=== PATIENT | male | born 1935 | race Caucasian/White ===

== ENCOUNTER → 2017-08-18 08:26 | Outpatient (CLI) | payer MEDICARE, OTHER, SELFPAY ==
[2017-08-18 09:35] LABS: Add Manual Diff / Slide Review NO; Basophils Percent Auto 1.1 % (0-2); Eosinophils Percent Auto 4.8 % (2-4); Hematocrit 43.4 % (41-53); Hemoglobin 15.1 g/dL (13.5-17.5); Lymphocytes Percent Auto 39.5 % (25-40); Mean Corpuscular HGB Conc 34.7 % (30-36); Mean Corpuscular Hemoglobin 32.8 PG (26-34); Mean Corpuscular Volume 94.6 fL (80-100); Monocytes Percent Auto 8.2 % (3-14); Neutrophils Absolute Auto 2700 /uL (3000-5900); Neutrophils Percent Auto 46.4 % (50-75); Platelet Count 223 X10^3/uL (150-400); Red Blood Cell Count 4.59 X10^6/uL (4.5-5.9); Red Cell Distribution Width 13.2 % (11.6-14.8); White Blood Cell Count 5.7 X10^3/uL (4.5-11.0)
[2017-08-18 09:54] LABS: Alanine Aminotransferase 37 IU/L (21-72); Albumin 4.1 g/dL (3.5-5.0); Albumin Globulin Ratio 1.4 (1.0-2.8); Alkaline Phosphatase 57 U/L (38-126); Aspartate Aminotransferase 33 IU/L (17-59); Bilirubin Total 0.9 mg/dL (0.2-1.3); Blood Urea Nitrogen 16 mg/dL (9-20); Calcium 8.7 mg/dL (8.4-10.2); Carbon Dioxide 25 mmol/L (22-32); Chloride 103 mmol/L (98-107); Cholesterol 136 mg/dL (140-199); Estimated Glomerular Filt Rate > 60.0 mL/min (>60); Globulin 2.9 g/dL (1.7-4.1); Glucose 102 mg/dL (80-110); HDL Cholesterol 36 mg/dL (40-60); HEMOLYSIS 22 (0-50); LDL Cholesterol Calculated 67 mg/dL (<100); Potassium 4.4 mmol/L (3.4-5.1); Sodium 140 mmol/L (137-145); Triglycerides 167 mg/dL (35-150)
[2017-08-18 10:20] LABS: Thyroid Stimulating Hormone 0.86 uIU/mL (0.47-4.68)
== END ==
PROVIDERS: PCP Internal Medicine; Visit Provider Internal Medicine Cardiovascular Disease
DX: E78.5 Hyperlipidemia, unspecified (principal); R53.83 Other fatigue
CPT/HCPCS: 36415; 80053; 80061; 84443; 85025

== ENCOUNTER → 2018-07-11 08:39 | Outpatient (CLI) | payer MEDICARE, OTHER, SELFPAY ==
--- NOTE | 2018-07-11 | DI.RAD.S_ITS ---
PROCEDURE: XR CHEST 2V INDICATIONS: ACUTE BRONCHITIS, UNSPECIFIED ORGANISM TECHNIQUE: 2 views of the chest were acquired. COMPARISON: [facility], CHEST 1 VIEW, 10/08/2014, 17:50. [facility], CHEST 1 VIEW, 07/30/2012, 18:15. FINDINGS: Surgical changes and devices: None. Lungs and pleura: Lungs are clear. No pleural effusions or pneumothorax. Mediastinum: Mediastinal contours are normal. Heart size is normal. Bones and chest wall: No suspicious bony abnormalities. Soft tissues appear unremarkable. IMPRESSION: Pacemaker and leads stable over time, otherwise normal for age, source of current bronchitis symptoms is not seen. Dictated by: Douglas Hayward M.D. on 07/11/2018 at 10:03 Approved by: Douglas Hayward M.D. on 07/11/2018 at 10:04
[2018-07-11 10:05] LABS: Alanine Aminotransferase 51 IU/L (21-72); Aspartate Aminotransferase 38 IU/L (17-59); BUN Creatinine Ratio 10.8 (6-22); Blood Urea Nitrogen 13 mg/dL (9-20); Calcium 9.3 mg/dL (8.4-10.2); Carbon Dioxide 27 mmol/L (22-32); Chloride 102 mmol/L (98-107); Cholesterol 128 mg/dL (140-199); Glucose 98 mg/dL (80-110); HDL Cholesterol 31 mg/dL (40-60); HEMOLYSIS < 15 (0-50); LDL Cholesterol Calculated 61 mg/dL (<100); Potassium 5.2 mmol/L (3.4-5.1); Sodium 139 mmol/L (137-145); Triglycerides 179 mg/dL (35-150)
[2018-07-11 10:25] LABS: Prostate Specific Antigen Scrn 0.505 ng/mL (0.1-4.0)
== END ==
PROVIDERS: PCP Internal Medicine; Visit Provider Internal Medicine
DX: Z12.5 Encounter for screening for malignant neoplasm of prostate (principal); I10 Essential (primary) hypertension; E78.5 Hyperlipidemia, unspecified; J20.9 Acute bronchitis, unspecified
CPT/HCPCS: 36415; 71046; 80048; 80061; 84450; 84460; G0103

== ENCOUNTER 2019-06-05 09:54 | Emergency (ER) | payer MEDICARE, OTHER, SELFPAY ==
--- NOTE | 2019-06-05 09:57 | DI.RAD.S_ITS ---
PROCEDURE: XR CHEST 1V INDICATIONS: Evaluation of placement of pacemaker TECHNIQUE: One view of the chest was acquired. COMPARISON: [facility], CR, XR CHEST 2V, 07/11/2018, 9:29. FINDINGS: Surgical changes and devices: A pacer device is seen. The leads are seen in stable positions. Lungs and pleura: Lungs are clear. No pleural effusions or pneumothorax. Mediastinum: Mediastinal contours appear normal. Heart size is normal. Bones and chest wall: Age-appropriate bony degenerative changes are seen. No suspicious bony lesions. Overlying soft tissues appear unremarkable. IMPRESSION: Unremarkable pacer device, which appears stable from the prior. The leads are seen in stable positions. Dictated by: Pito Vásquez M.D. on 06/05/2019 at 9:19 Approved by: Pito Vásquez M.D. on 06/05/2019 at 9:20
[2019-06-05 09:58] VITALS: BP 168/79; PULSE 64; RESP 22; TEMP 36.3; O2SAT 100
--- NOTE | 2019-06-05 10:07 | ED_ITS ---
HPI - General Adult General Chief complaint: Arrhythmia/Palpitations Stated complaint: Pacemaker failing Time Seen by Provider: 06/05/19 09:56 Source: patient Mode of arrival: Ambulatory Limitations: no limitations History of Present Illness HPI narrative: 83-year-old male. Has a pacemaker in place secondary to AFib. His current pacemaker has been in for the past 9 years. He states that he is scheduled to have it replace the beginning of next week secondary to a low battery. He states that he was at his normal state health when at 0900 hours this morning he started to feel weird sensations in his chest. He states it feels like someone is turning the power up and down on the pacemaker. He states that when the symptoms occur they last for seconds and then completely resolved. No chest pain. Some shortness of breath with the symptoms but none at the time my evaluation. Not on anticoagulation Related Data Home Medications Medication Instructions Recorded Confirmed ASPIRIN (Aspir-Low) 81 mg PO QDAY #0 02/24/11 03/18/18 atenolol 25 mg PO HS #0 02/24/11 03/18/18 atorvastatin [Lipitor] 40 mg PO QDAY #0 07/30/12 03/18/18 zolpidem 5 mg PO HSP #0 07/30/12 03/18/18 Allergies Allergy/AdvReac Type Severity Reaction Status Date / Time Sulfa (Sulfonamide Allergy Mild HIVES Verified 03/18/18 14:25 Antibiotics) [SULFA (SULFONAMIDE ANTIBIOTICS)] Review of Systems Constitutional Constitutional: Denies fever(s) Cardiovascular Cardiovascular: Denies chest pain and Reports dyspnea Respiratory Respiratory: Reports dyspnea Gastrointestinal Gastrointestinal: Denies abdominal pain, Denies nausea and Denies vomiting Musculoskeletal Musculoskeletal: Denies myalgias and Denies arthralgias Integumentary/Breasts Skin/Breast: Denies rash Neurologic Neurologic: Denies behavioral changes Psychiatric Psychiatric: Denies behavioral changes Hematologic/Lymphatic Hematologic/Lymphatic: Denies easy bleeding and Denies easy bruising Patient History Medical History Atrial fibrillation (Acute) Pacemaker (Acute) Social History Smoking Status: Former smoker Smoking Status: Former smoker Exam Initial Vital Signs Initial Vital Signs: Vital Signs Temperature 97.3 F L 06/05/19 09:58 Pulse Rate 64 06/05/19 09:58 Respiratory Rate 22 06/05/19 09:58 Blood Pressure 168/79 H 06/05/19 09:58 Pulse Oximetry 100 06/05/19 09:58 Const General: cooperative, comfortable and well developed Limitations: mental status not altered HENMO Head: normal to inspection and normocephalic Resp Effort & Inspection: normal respiratory effort Auscultation: clear to auscultation bilaterally Cardio Rate: regular rate Rhythm: regular rhythm GI Inspection: non-distended Palpation: soft Skin Lesions: no lesions Rashes: no rashes Neuro General: alert, awake and oriented x3 Cognition: normal cognition Speech: speech normal Extrem General: normal to inspection and capillary refill normal Psych Appearance: grossly normal and well kempt Scores GCS Rosalina coma scale eye opening: Spontaneous Hondo coma scale verbal response: Orientated Rosalina coma scale motor response: Obey commands Rosalina coma scale total score: 15 Course Orders Ordered: ED Orders 06/05/19 09:57 XR chest 1V Stat EKG-12 Lead Stat 06/05/19 10:10 Complete Blood Count AUTO DIFF Stat Comprehensive Metabolic Panel Stat Lipase Stat NT-proBNP (BNP-Adult 18+) Stat Partial Thromboplastin Time Stat Prothrombin Time INR Stat Vital Signs Vital signs: Vital Signs - 8 hr 06/05/19 09:58 06/05/19 11:02 Temperature 97.3 F L Pulse Rate 64 64 Respiratory Rate 22 18 Blood Pressure 168/79 H 123/71 Pulse Oximetry 100 95 Medical Decision Making Lab Data Lab results reviewed: Yes I reviewed the patient's lab results. Result diagrams: 06/05/19 10:10 06/05/19 10:10 Labs: Lab Results 06/05/19 06/05/19 06/05/19 Range/Units 10:10 10:10 10:10 WBC 6.6 (4.5-11.0) X10^3/uL RBC 4.55 (4.5-5.9) X10^6/uL Hgb 15.0 (13.5-17.5) g/dL Hct 43.7 (41-53) % MCV 96.1 (80-100) fL MCH 32.9 (26-34) PG MCHC 34.2 (30-36) % RDW 12.9 (11.6-14.8) % Plt Count 238 (150-400) X10^3/uL Neut % (Auto) 48.4 L (50-75) % Lymph % (Auto) 43.8 H (25-40) % Armstrong % (Auto) 4.5 (3-14) % Eos % (Auto) 2.5 (2-4) % Baso % (Auto) 0.8 (0-2) % Neut # (Auto) 3200 (7043-5045) /uL Lymph # (Auto) 2900 (5723-6700) /uL Armstrong # (Auto) 300 (0-900) /uL Eos # (Auto) 200 (0-450) /uL Baso # (Auto) 100 (0-100) /uL PT 11.4 (10.1-12.7) SECONDS INR 1.0 (0.9-1.3) APTT 34 (26.4-36.2) SECONDS Sodium 137 (137-145) mmol/L Potassium 4.2 (3.4-5.1) mmol/L Chloride 107 (98-107) mmol/L Carbon Dioxide 22 (22-32) mmol/L BUN 20 (9-20) mg/dL Creatinine 1.05 (0.66-1.25) mg/dL Estimated GFR > 60.0 (>60) mL/min BUN/Creatinine Ratio 19.0 (6-22) Glucose 179 H (80-110) mg/dL Calcium 8.9 (8.4-10.2) mg/dL Total Bilirubin 0.7 (0.2-1.3) mg/dL AST 46 (17-59) IU/L ALT 42 (<50) IU/L Alkaline Phosphatase 52 (38-126) U/L NT-Pro-B Natriuret Pep (<450) pg/mL Total Protein 6.9 (6.3-8.2) g/dL Albumin 4.2 (3.5-5.0) g/dL Globulin 2.7 (1.7-4.1) g/dL Albumin/Globulin Ratio 1.6 (1.0-2.8) Lipase 102 (23-300) U/L 03/18/20 Range/Units 10:10 WBC (4.5-11.0) X10^3/uL RBC (4.5-5.9) X10^6/uL Hgb (13.5-17.5) g/dL Hct (41-53) % MCV (80-100) fL MCH (26-34) PG MCHC (30-36) % RDW (11.6-14.8) % Plt Count (150-400) X10^3/uL Neut % (Auto) (50-75) % Lymph % (Auto) (25-40) % Armstrong % (Auto) (3-14) % Eos % (Auto) (2-4) % Baso % (Auto) (0-2) % Neut # (Auto) (6423-8994) /uL Lymph # (Auto) (6068-8703) /uL Armstrong # (Auto) (0-900) /uL Eos # (Auto) (0-450) /uL Baso # (Auto) (0-100) /uL PT (10.1-12.7) SECONDS INR (0.9-1.3) APTT (26.4-36.2) SECONDS Sodium (137-145) mmol/L Potassium (3.4-5.1) mmol/L Chloride (98-107) mmol/L Carbon Dioxide (22-32) mmol/L BUN (9-20) mg/dL Creatinine (0.66-1.25) mg/dL Estimated GFR (>60) mL/min BUN/Creatinine Ratio (6-22) Glucose (80-110) mg/dL Calcium (8.4-10.2) mg/dL Total Bilirubin (0.2-1.3) mg/dL AST (17-59) IU/L ALT (<50) IU/L Alkaline Phosphatase (38-126) U/L NT-Pro-B Natriuret Pep 77 (<450) pg/mL Total Protein (6.3-8.2) g/dL Albumin (3.5-5.0) g/dL Globulin (1.7-4.1) g/dL Albumin/Globulin Ratio (1.0-2.8) Lipase (23-300) U/L Imaging Data Chest x-ray: Radiologist's Impression: [address] [address] XRay Report Signed Patient: Lamberto Serrato [facility]#: [id number] : 6Acct:[id number] Age/Sex: 83 / MDate of Service: 06/05/19 Loc: ED Accession Number: [id number] Procedure: XR chest 1V Ordering Provider: Jens Aguayo D.O. PROCEDURE: XR CHEST 1V INDICATIONS: Evaluation of placement of pacemaker TECHNIQUE: One view of the chest was acquired. COMPARISON: [facility], CR, XR CHEST 2V, 07/11/2018, 9:29. FINDINGS: Surgical changes and devices: A pacer device is seen. The leads are seen in stable positions. Lungs and pleura: Lungs are clear. No pleural effusions or pneumothorax. Mediastinum: Mediastinal contours appear normal. Heart size is normal. Bones and chest wall: Age-appropriate bony degenerative changes are seen. No suspicious bony lesions. Overlying soft tissues appear unremarkable. IMPRESSION: Unremarkable pacer device, which appears stable from the prior. The leads are seen in stable positions. Dictated by: Pito Vásquez M.D. on 06/05/2019 at 9:19 Approved by: Pito Vásquez M.D. on 06/05/2019 at 9:20 ECG Data Attestation: I personally reviewed and interpreted this ECG as follows: Prior ECG tracings: not available for review Interpretation: Ventricularly paced Rate is 65 MDM Narrative Medical decision making narrative: Patient is stable. Is ventricularly paced at a rate is 65. Has a [employer] pacemaker. According to [employer] and Dr aguirre with cardiology his pacemaker does revert to a single-chamber with a rate is 65 when it reaches its better in life. He is scheduled next week for a procedure to have this replaced. Patient did have symptoms while being here in the emergency department without any changes on his monitoring. He was ventricularly paced at a rate is 65. Electrolytes are unremarkable. Will have the patient follow up on Monday as already scheduled. He was given strict return precautions. He expressed understanding and agreement. Discharge Plan Departure Patient Disposition: Home Clinical Impression: Palpitations Discharge Date/Time: 06/05/19 11:05 Activity Restrictions/Additional Instructions: Your pacemaker does seem to be working appropriately for the stage in its battery life. I do recommend that you keep your appointment at the beginning of next week to have the battery changed. Please return to the emergency department for any new symptoms to include headaches, chest pain, palpitations, lightheadedness, or any other new or worsening symptoms Prescriptions: No Action atenolol 25 MG tablet 25 mg PO HS Qty: 0 RF: 0 ASPIRIN (Aspir-Low) 81 mg PO QDAY Qty: 0 RF: 0 atorvastatin [Lipitor] 40 MG tablet 40 mg PO QDAY Qty: 0 RF: 0 zolpidem 5 MG tablet 5 mg PO HSP Qty: 0 RF: 0 Referrals: Evelyn Hallman MD [Primary Care Provider] -
--- NOTE | 2019-06-05 10:16 | PC.NURSE ---
Pt arrived to ED with . C/o feeling fluttering in his chest. Has pacemaker x9 yrs which he has an appt next week to have battery changed. States it feels like it does when they are changing the voltage Denies CP, dizziness, or SOB at this time. attached to cardiac monitoring. Appears to be 100% VPaced. Lungs clear. states h/o 1 cardiac stent. takes ASA 81mg daily. IV placed and labs drawn. awaiting MD assessment.
[2019-06-05 10:18] LABS: Add Manual Diff / Slide Review NO; Basophils Absolute Auto 100 /uL (0-100); Basophils Percent Auto 0.8 % (0-2); Eosinophils Absolute Auto 200 /uL (0-450); Eosinophils Percent Auto 2.5 % (2-4); Hematocrit 43.7 % (41-53); Lymphocytes Absolute Auto 2900 /uL (1100-4500); Lymphocytes Percent Auto 43.8 % (25-40); Mean Corpuscular HGB Conc 34.2 % (30-36); Mean Corpuscular Hemoglobin 32.9 PG (26-34); Mean Corpuscular Volume 96.1 fL (80-100); Monocytes Absolute Auto 300 /uL (0-900); Monocytes Percent Auto 4.5 % (3-14); Neutrophils Absolute Auto 3200 /uL (1500-7000); Neutrophils Percent Auto 48.4 % (50-75); Platelet Count 238 X10^3/uL (150-400); Red Blood Cell Count 4.55 X10^6/uL (4.5-5.9); Red Cell Distribution Width 12.9 % (11.6-14.8); White Blood Cell Count 6.6 X10^3/uL (4.5-11.0)
[2019-06-05 10:24] LABS: Prothrombin Time 11.4 SECONDS (10.1-12.7)
[2019-06-05 10:26] LABS: PTT Partial Thromboplastin Tim 34 SECONDS (26.4-36.2)
--- NOTE | 2019-06-05 10:30 | PC.NURSE ---
call placed to [employer]. aware we do not have [employer] Pacer interrogator
[2019-06-05 10:32] LABS: Alanine Aminotransferase 42 IU/L (<50); Albumin 4.2 g/dL (3.5-5.0); Albumin Globulin Ratio 1.6 (1.0-2.8); Alkaline Phosphatase 52 U/L (38-126); Aspartate Aminotransferase 46 IU/L (17-59); Bilirubin Total 0.7 mg/dL (0.2-1.3); Blood Urea Nitrogen 20 mg/dL (9-20); Calcium 8.9 mg/dL (8.4-10.2); Carbon Dioxide 22 mmol/L (22-32); Chloride 107 mmol/L (98-107); Estimated Glomerular Filt Rate > 60.0 mL/min (>60); Globulin 2.7 g/dL (1.7-4.1); Glucose 179 mg/dL (80-110); HEMOLYSIS 25 (0-50); Lipase 102 U/L (23-300); Potassium 4.2 mmol/L (3.4-5.1); Sodium 137 mmol/L (137-145); Total Protein 6.9 g/dL (6.3-8.2)
[2019-06-05 10:42] LABS: NT-proBNP (BNP-Adult 18+) 77 pg/mL (<450)
[2019-06-05 11:02] VITALS: BP 123/71; PULSE 64; RESP 18; O2SAT 95
== END 2019-06-05 11:05 | disposition home or self-care (01) ==
PROVIDERS: Emergency Provider Emergency Medicine; PCP Internal Medicine
DX: R00.2 Palpitations (principal); I48.91 Unspecified atrial fibrillation; Z95.0 Presence of cardiac pacemaker
CPT/HCPCS: 36415; 71045; 80053; 83690; 83880; 85025; 85610; 85730; 93005; 99284

== ENCOUNTER → 2019-07-23 11:58 | Outpatient (CLI) | payer MEDICARE, OTHER, SELFPAY ==
[2019-07-23 14:42] LABS: Alanine Aminotransferase 39 IU/L (<50); Aspartate Aminotransferase 38 IU/L (17-59); Cholesterol 135 mg/dL (140-199); HDL Cholesterol 34 mg/dL (40-60); LDL Cholesterol Calculated 59 mg/dL (<100); Triglycerides 208 mg/dL (35-150)
== END ==
PROVIDERS: PCP Internal Medicine; Referring Provider Internal Medicine; Visit Provider Internal Medicine
DX: E78.5 Hyperlipidemia, unspecified (principal)
CPT/HCPCS: 36415; 80061; 84450; 84460

== ENCOUNTER → 2019-07-26 11:48 | Outpatient (CLI) | payer MEDICARE, OTHER, SELFPAY ==
--- NOTE | 2019-07-26 | DI.RAD.S_ITS ---
PROCEDURE: XR WRIST LT MIN 3V INDICATIONS: Left Wrist Pain After Fall TECHNIQUE: 3 views of the wrist were acquired. COMPARISON: None. FINDINGS: Bones: No fractures or dislocations. No suspicious bony lesions. Degenerative changes are present at the radiocarpal joint and the first CMC joint. Scaphoid view: The scaphoid is intact. Soft tissues: No suspicious soft tissue calcifications. IMPRESSION: No acute radiographic findings. If there is continued pain, followup exam or additional imaging such as MRI or CT could be performed for further assessment. Dictated by: Yadi Mello M.D. on 07/26/2019 at 16:13 Approved by: Yadi Mello M.D. on 07/26/2019 at 16:13
== END ==
PROVIDERS: PCP Internal Medicine; Referring Provider Internal Medicine; Visit Provider Internal Medicine
DX: M25.532 Pain in left wrist (principal)
CPT/HCPCS: 73110

== ENCOUNTER → 2019-08-07 13:03 | Outpatient (CLI) | payer MEDICARE, OTHER, SELFPAY ==
--- NOTE | 2019-08-07 | DI.CT.S_ITS ---
PROCEDURE: CT UE LT WO CON INDICATIONS: Pain in left wrist after fall TECHNIQUE: Noncontrast 1 mm axial sections acquired through the carpal bones, with coronal and sagittal reformats. COMPARISON: [facility], CR, XR WRIST LT MIN 3V, 07/26/2019, 11:49. FINDINGS: Image quality: Excellent. Bones: No fracture or traumatic subluxation is found. 2 small accessory ossicles are seen along the dorsal margin of the radiocarpal articulation, also present on prior plain film imaging. These do not appear to represent avulsion fragments. 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 If unusual symptomatology persists followup by wrist MRI with MR arthrography may become necessary. Dictated by: Douglas Hayward M.D. on 08/07/2019 at 13:58 Approved by: Douglas Hayward M.D. on 08/07/2019 at 14:01
== END ==
PROVIDERS: PCP Internal Medicine; Referring Provider Internal Medicine; Visit Provider Internal Medicine
DX: M25.532 Pain in left wrist (principal); M19.042 Primary osteoarthritis, left hand
CPT/HCPCS: 73200

== ENCOUNTER → 2019-11-06 08:34 | Outpatient (CLI) | payer MEDICARE, OTHER, SELFPAY ==
[2019-11-06 10:13] LABS: Cholesterol 126 mg/dL (140-199); HDL Cholesterol 34 mg/dL (40-60); LDL Cholesterol Calculated 55 mg/dL (<100); Triglycerides 184 mg/dL (35-150)
[2019-11-06 11:05] LABS: Thyroid Stimulating Hormone 1.21 uIU/mL (0.47-4.68)
== END ==
PROVIDERS: PCP Internal Medicine; Referring Provider Internal Medicine Cardiovascular Disease; Visit Provider Internal Medicine Cardiovascular Disease
DX: E78.5 Hyperlipidemia, unspecified (principal)
CPT/HCPCS: 36415; 80061; 84443

== ENCOUNTER → 2019-11-20 10:24 | Outpatient (CLI) | payer MEDICARE, OTHER, SELFPAY ==
--- NOTE | 2019-11-20 11:45 | PM.TREADMILL ---
Cardiac Stress Test Report Referral & Results Date Patient Seen: 11/20/19 Time Patient Seen: 11:45 Requesting provider: Dami Billy Indication: CAD Rest ECG: V paced rhythm Procedure Note: After Lexiscan injection had minimal dyspnea, GI upset and flushing; no chest discomfort. No significant ST changes on ECG after Lexiscan injection, no ectopy. No reversal agents needed Impression: Equivocal lexiscan stress test Please note: Actual ECG tracings can be found in the PACS system.
--- NOTE | 2019-11-21 17:28 | DI.NM.S_ITS ---
DATE OF SERVICE: 11/20/2019 PROCEDURE: Pharmacological perfusion study. INDICATIONS: Shortness of breath, known coronary artery disease with history of LAD stent placement and PTCA of inferior diagonal branch in May, with underlying hypertension and hyperlipidemia. RADIOPHARMACEUTICAL: 26.8 millicurie technetium-99m Myoview IV was injected at stress and 26.3 millicurie technetium-99m Myoview IV was injected at rest. CARDIAC STRESS: The patient underwent IV Lexiscan perfusion study, as per standard protocol, under the supervision of an attending staff. The patient remained hemodynamically stable. Had minimal dyspnea and flushing, as well as upset stomach during Lexiscan. Baseline EKG revealed A-sensed and ventricular paced rhythm. During stress, no convincing new ischemic changes. No significant new sustained arrhythmias. RAW DATA: There is increased subdiaphragmatic activity. The patient's weight is 265 pounds. GATED STUDY: Stress LV ejection fraction 71 percent and resting LV ejection fraction 70 percent. Resting end-diastolic volume 129 mL. TID ratio 1.0, which is within normal limits. Lung/heart ratio 0.50 which is abnormal. MYOCARDIAL PERFUSION: Stress supine and resting supine images were compared to each other. There are no prone images. The patient has predominantly fixed, moderate size, moderate to severely decreased perfusion of mid to distal inferior wall and distal inferoseptum without any significant reversible ischemia. CONCLUSION: The patient has predominantly fixed, moderate size, moderate to severely decreased perfusion of mid to distal inferior wall and distal inferoseptum. It was seen on previous perfusion study, as well. In April,, the patient had reversible ischemia of anterior and anterolateral wall, which was not seen on this study. There are no prone images. Hence, it is difficult to distinguish diaphragmatic tissue attenuation artifact versus old inferior wall myocardial infarction. However, the patient's weight is 265 pounds. Inferior wall is moving well. Hence, likely this fixed inferior wall defect due to diaphragmatic tissue attenuation artifact. Lung/heart ratio is abnormal. Consider 2D echo to make sure there is no diastolic dysfunction or left-sided valvular pathology. Lamberto Serrato - Myra doc#: [id number]/job#: [id number] dd: 11/21/2019 12:51:00 dt: 11/21/2019 17:19:00 DICTATING MD/COPIES TO: Dami Billy MD COPIES MNE: ALTON;
== END ==
PROVIDERS: PCP Internal Medicine; Referring Provider Internal Medicine; Visit Provider Internal Medicine Cardiovascular Disease
DX: R53.83 Other fatigue (principal); R06.02 Shortness of breath; I25.10 Atherosclerotic heart disease of native coronary artery without angina pectoris; I10 Essential (primary) hypertension; E78.5 Hyperlipidemia, unspecified; Z95.5 Presence of coronary angioplasty implant and graft
CPT/HCPCS: 78452; 93017; A9502; J2785

== ENCOUNTER → 2019-12-03 07:45 | Outpatient (CLI) | payer MEDICARE, OTHER, SELFPAY ==
--- NOTE | 2019-12-03 08:32 | DI.ECHO.S_ITS ---
Echocardiogram Report + + :Name: NEW SONG Study Date: 12/03/2019 Height: 70 in : :[facility] Weight: 246 lb : : Gender: Male BSA: 2.3 m2 : :: 1935 Age: 84 yrs BP: 148/96 mmHg: :Reason For Study: FATIGUE : :Ordering Physician: KATHE, : :PARKER Performed By: Nu Jean : :Referring: PARKER ARCHULETA : + + Interpretation Summary The left ventricle is normal in size. The ejection fraction is estimated to be 55-60%. There has been no significant change in LV EF since the previous exam. The right ventricle is grossly normal size. The right ventricular systolic function is normal. There is a pacemaker lead in the right ventricle. The aortic valve is moderately calcified. There is mildly reduced leaflet mobility. There is no hemodynamically significant valvular aortic stenosis. Procedure: A two-dimensional transthoracic echocardiogram with color flow and Doppler was performed. The study quality was technically adequate. A contrast injection of Definity was performed to improve assessment of LV function. Comparison is made with the echocardiogram of 11/17/2016. The patient has a paced rhythm. Left Ventricle: The left ventricle is normal in size. Proximal septal thickening is noted. There is no echo evidence for significant left ventricular outflow tract obstruction. There is no thrombus. The ejection fraction is estimated to be 55-60%. There has been no significant change since the previous exam. There is a mild dyssynchronous contraction pattern due to the paced rhythm. Distal inferior and the distal inferoseptum wall motion abnormalities may reflect pacemaker activation. Compared to the prior exam, the left ventricular wall motion has not changed. Diastolic parameters suggest a relaxation abnormality of the left ventricle, consistent with probable normal filling pressures. Right Ventricle: There is a pacemaker lead in the right ventricle. The right ventricle is grossly normal size. The right ventricular systolic function is normal. Atria: Both atria are normal in size. There is a catheter/pacemaker lead seen in the right atrium. There is no Doppler evidence for an interatrial shunt. Mitral Valve: There is mild mitral annular calcification. There is trace mitral regurgitation. Aortic Valve: The aortic valve is trileaflet. The aortic valve is moderately calcified. There is mild aortic valve sclerosis. There is mildly reduced leaflet mobility. There is no hemodynamically significant valvular aortic stenosis. There is trace aortic regurgitation. Tricuspid Valve: The tricuspid valve is normal. There is trace tricuspid regurgitation. Pulmonic Valve: The pulmonic valve leaflets are thin and pliable; valve motion is normal. There is trace pulmonic regurgitation. Great Vessels: The aortic root is borderline dilated. The ascending aorta is mildly enlarged. There has been no significant change since the previous study. The IVC is of normal diameter and collapses greater than 50% with a sniff. This suggests a low right atrial pressure of 3 mm Hg. Pericardium/ Pleura There is no pericardial effusion. There is an anterior echo-free space consistent with a fat pad. There is no pleural effusion. MMode/2D Measurements & Calculations LVIDd: 5.2 cm LVOT diam: 2.2 cm LVIDs: 3.5 cm Ao root diam: 3.9 cm FS: 33.1 % asc Aorta Diam: 3.7 cm EPSS: 0.78 cm IVSd: 1.4 cm LVPWd: 1.0 cm LV loja. diameter/BSA (cm/m^2): 2.3 LV sys. diameter/BSA (cm/m^2): 1.5 LA A2 area: 25.9 cm2 RA long axis: 4.8 cm LA A4 area: 18.2 cm2 RA area: 16.6 cm2 LA length (vol): 5.9 cm RA vol: 48.2 ml LA vol: 67.4 ml RA : 21.2 ml/m2 LA vol index: 29.6 ml/m2 IVC diam: 1.6 cm RVD1 (basal): 3.9 cm TAPSE: 2.1 cm Doppler Measurements & Calculations Ao V2 max: 192.8 cm/sec LVOT Max Rick: 83.7 cm/sec Ao V2 mean: 131.5 cm/sec LV V1 max P.8 mmHg Ao max P.9 mmHg LV V1 VTI: 18.2 cm Ao mean P.9 mmHg DOUG(I,D): 1.7 cm2 Ao V2 VTI: 40.7 cm DOUG(V,D): 1.6 cm2 sev ratio: 0.45 DOUG indexed to BSA (cm^2/m^2): 0.74 MV E max rick: 51.5 cm/sec PA pr(Accel): 55.0 mmHg MV A max rick: 91.9 cm/sec MV E/A: 0.56 Med Peak E' Rick: 6.4 cm/sec E/E' med: 8.1 Lat Peak E' Rick: 6.0 cm/sec E/E' lat: 8.6 E/e' average: 8.3 MV dec time: 0.28 sec SVLVOT): 68.2 ml Reading Physician:02:10 PM
== END ==
PROVIDERS: PCP Internal Medicine; Referring Provider Internal Medicine; Visit Provider Internal Medicine Cardiovascular Disease
DX: I35.8 Other nonrheumatic aortic valve disorders (principal); I77.89 Other specified disorders of arteries and arterioles; I25.10 Atherosclerotic heart disease of native coronary artery without angina pectoris; R53.83 Other fatigue
CPT/HCPCS: C8929; Q9957

== ENCOUNTER → 2020-05-28 11:43 | Outpatient (CLI) | payer MEDICARE, OTHER, SELFPAY ==
[2020-05-28] MEDS: COVID-19 VACC, Ad26(JANSSEN)/PF 0.5 ML IM (11:57)
== END ==
PROVIDERS: PCP Internal Medicine; Visit Provider Internal Medicine
DX: Z23 Encounter for immunization (principal)
CPT/HCPCS: 0031A; 91303

== ENCOUNTER → 2022-03-14 10:46 | Outpatient (CLI) | payer MEDICARE, OTHER, SELFPAY ==
--- NOTE | 2022-03-14 10:50 | DI.RAD.S_ITS ---
PROCEDURE: XR HAND LT MIN 3V INDICATIONS: Left thumb decreased range of motion TECHNIQUE: 3 views of the hand(s) acquired. COMPARISON: [facility], CR, XR WRIST LT MIN 3V, 07/26/2019, 11:49. FINDINGS: Bones: No fractures or dislocations. Moderate degenerative change. This is demonstrable by large osteophytes and mild joint space narrowing. Carpal bones are normally aligned. No suspicious bony lesions. Soft tissues: No suspicious soft tissue calcifications. IMPRESSION: Moderate degenerative change. No fracture demonstrated. Dictated by: oJrje Rodriguez M.D. on 03/14/2022 at 11:53 Approved by: Jorje Rodriguez M.D. on 03/14/2022 at 11:56
== END ==
PROVIDERS: PCP Internal Medicine; Referring Provider Nurse Practitioner Family; Visit Provider Nurse Practitioner Family
DX: M25.642 Stiffness of left hand, not elsewhere classified (principal)
CPT/HCPCS: 73130

== ENCOUNTER 2022-05-04 14:22 | Emergency (ER) | payer MEDICARE, OTHER, SELFPAY ==
[2022-05-04 14:26] VITALS: BP 145/72; PULSE 67; RESP 20; TEMP 36.4; O2SAT 96; BMI 37.6
[2022-05-04] MEDS: TET,DIPH,PERTUSS(ACELL),VAC/PF 0.5 ML SYRINGE IM (14:48)
[2022-05-04 19:12] VITALS: BP 171/86; PULSE 65; O2SAT 96
[2022-05-04 19:30] VITALS: PULSE 60; O2SAT 96
[2022-05-04 19:31] VITALS: BP 170/79; PULSE 60; O2SAT 96
[2022-05-04 20:00] VITALS: BP 161/76; PULSE 61; O2SAT 96
--- NOTE | 2022-05-04 20:38 | ED_ITS ---
HPI - Wound/Laceration General Chief Complaint: Wound/Laceration Stated Complaint: lac on ring finger rt hand Time Seen by Provider: 05/04/22 19:16 Source: patient and family Mode of arrival: Family Vehicle History of Present Illness HPI narrative: 86-year-old male former smoker with history of hypertension hyperlipidemia presents for evaluation an accidental laceration to the ring finger of his right hand. He states that he was using a mandoline and accidentally cut the tip of his finger. It bled for a bit and he put a coagulating powder on the tip of his finger prior to coming here. He had bleeding but that has since slowed. He denies any numbness, tingling or weakness. He is otherwise well and free of complaint Related Data Home Medications Medication Instructions Recorded Confirmed ASPIRIN (Aspir-Low) 81 mg PO QDAY ##0 02/24/11 03/18/18 atenolol 25 mg tablet 25 mg PO HS ##0 02/24/11 03/18/18 atorvastatin 40 mg tablet (Lipitor) 40 mg PO QDAY ##0 07/30/12 03/18/18 zolpidem 5 mg tablet 5 mg PO HSP ##0 07/30/12 03/18/18 Previous Rx's Medication Instructions Recorded prednisone 20 mg tablet 40 mg PO DAILY #8 tabs 03/04/22 Allergies Allergy/AdvReac Type Severity Reaction Status Date / Time Sulfa (Sulfonamide Allergy Mild HIVES Verified 05/04/22 14:34 Antibiotics) [SULFA (SULFONAMIDE ANTIBIOTICS)] Review of Systems Review of Systems Narrative: GENERAL: Denies chills, fatigue, malaise, fever, sweats. HEENT: Denies sinus pain, ear pain, sore throat, difficulty swallowing, dizziness. RESPIRATORY: Denies dyspnea, cough, wheezing, hemoptysis, sputum. CARDIOVASCULAR: Denies chest pain, palpitations, orthopnea, edema, GASTROINTESTINAL: Denies nausea, vomiting, abdominal pain, diarrhea, constipation, melena. : Denies dysuria, frequency, incontinence, hematuria, urinary retention. MUSCULOSKELETAL: denies weakness, joint pain, or bony pain SKIN: See HPI NEUROLOGIC: Denies weakness, headache, numbness, change in speech, confusion, seizures, incoordination. PSYCHIATRIC: No concerning psychosocial issues. 12 point review of systems is negative except for those stated above Patient History Medical History Atrial fibrillation Pacemaker Social History Smoking Status: Former smoker Smoking Status: Former smoker tobacco type: cigarettes alcohol intake frequency: 0-2 drinks per day Substance Use Type: does not use Exam Narrative Exam Narrative: GEN: AOx3 and in mild distress EYES: Pupils are equal, round, and reactive to light and accommodation. Extraoccular muscles are intact bilaterally. There is no subconjunctival hemorrhage or exudate. CHEST: Lungs are clear to auscultation bilaterally and free of wheezes, rales, or rhonchi. Heart rate is regular rhythm, there are no murmurs, clicks, rubs, or gallops. There is no chest wall tenderness. ABD: Abdomen is soft and nontender. There is no guarding or rebound. Bowel sounds are normal in all 4 quadrants. There is no mass or organomegaly. EXT: Small avulsion of tip of right 5th finger, no active bleeding, no foreign body, no bone exposure, no nail or nail bed involvement. Full, painless range of motion Full painless ROM of all extremities with no loss of sensation or strength. SKIN: Warm, pink, and dry. No erythema or rash Initial Vital Signs Initial Vital Signs: Vital Signs Temperature 97.5 F L 05/04/22 14:26 Pulse Rate 67 05/04/22 14:26 Respiratory Rate 20 05/04/22 14:26 Blood Pressure 145/72 H 05/04/22 14:26 Pulse Oximetry 96 05/04/22 14:26 Oxygen Delivery Method 05/04/22 14:26 Course Orders Ordered: Discontinued Medications Diphtheria/Tetanus/Acell Pertussis (Tet,Diph,Pertuss(Acell),Vac/Pf 0.5 Ml Syringe) 0.5 ml IM .ONCE ONE Stop: 05/04/22 14:35 Last Admin: 05/04/22 14:48 Dose: 0.5 ml Documented By: TATIANA Vital Signs Vital signs: Vital Signs - 8 hr 05/04/22 20:00 05/04/22 20:00 Pulse Rate 61 Blood Pressure 161/76 H Pulse Oximetry 96 MDM - Wound/Laceration MDM Narrative Medical decision making narrative: [86-year-old male with avulsion laceration to tip of right 4th finger] Multiple etiologies for patient's symptoms considered including, but not limited to: [Laceration, avulsion, nail bed injury versus other] Prior Charts reviewed: Prior ED notes evaluated Avulsion laceration without active bleeding, clean, hemostatic gauze placed, no indication for sutures, no need for antibiotics at this time. Otherwise closed, isolated and neurovascularly intact Patient's symptoms improved over duration of stay with above-stated therapies. Findings and discharge diagnosis discussed with patient/family followed by verbalization of understanding Return precautions discussed with patient/family whom verbalize understanding of diagnosis and plan Discharge Plan Departure Patient Disposition: Home Clinical Impression: Avulsion of skin Instructions: DI for Laceration Repair Activity Restrictions/Additional Instructions: *You have been diagnosed with [right hand 4th finger avulsion laceration] *What to do: *Please continue to take your regular medications as directed. [ ] New medication prescriptions sent to your pharmacy: [ ] [ ] New medication written as a paper prescription [ ] No new medications given *Please follow up with your primary care provider in 2-3 days, call for an appointment. Let them know you were seen in the Emergency Department and that we ask that you be seen in follow up. We will electronically transmit a record of today's note if your PCP is in our system *If you do not have a primary care provider please contact the [facility] Resource line at [phone]. They will ask some questions about your medical history and help get you set up with a doctor in the community. *Return to Emergency Department if you should have any new, worsening or concerning symptoms, such as [fever greater than 101 F, shaking chills, worsening pain, persistent vomiting or other bothersome symptoms] Prescriptions: No Action prednisone 20 mg tablet 40 mg PO DAILY Qty: 8 0RF atenolol 25 MG tablet 25 mg PO HS Qty: 0 ASPIRIN (Aspir-Low) 81 mg PO QDAY Qty: 0 atorvastatin [Lipitor] 40 MG tablet 40 mg PO QDAY Qty: 0 zolpidem 5 MG tablet 5 mg PO HSP Qty: 0 Referrals: Evelyn Hallman MD [Primary Care Provider] - Stand Alone Forms: Patient Portal/API
== END 2022-05-04 20:59 | disposition home or self-care (01) ==
PROVIDERS: Emergency Provider Emergency Medicine; PCP Internal Medicine
DX: S61.214A Laceration without foreign body of right ring finger without damage to nail, initial encounter (principal); W26.0XXA Contact with knife, initial encounter; Z79.82 Long term (current) use of aspirin; Z23 Encounter for immunization
CPT/HCPCS: 90471; 99283; 90715

== ENCOUNTER → 2022-07-12 13:39 | Outpatient (CLI) | payer MEDICARE, OTHER, SELFPAY ==
[2022-07-12 14:45] LABS: Alanine Aminotransferase 33 IU/L (<50); Albumin 4.2 g/dL (3.5-5.0); Albumin Globulin Ratio 1.6 (1.0-2.8); Alkaline Phosphatase 54 U/L (38-126); Aspartate Aminotransferase 34 IU/L (17-59); BUN Creatinine Ratio 13.6 (6-22); Bilirubin Total 0.6 mg/dL (0.2-1.3); Blood Urea Nitrogen 15 mg/dL (9-20); Calcium 8.9 mg/dL (8.4-10.2); Carbon Dioxide 29 mmol/L (22-32); Chloride 103 mmol/L (98-107); Estimated Glomerular Filt Rate > 60 mL/min (>60); Globulin 2.6 g/dL (1.7-4.1); Glucose 95 mg/dL (80-110); HEMOLYSIS 31 (0-50); Magnesium 2.1 mg/dL (1.6-2.3); Potassium 4.9 mmol/L (3.4-5.1); Sodium 139 mmol/L (137-145); Total Protein 6.8 g/dL (6.3-8.2)
[2022-07-12 15:15] LABS: Thyroid Stimulating Hormone 1.27 uIU/mL (0.47-4.68)
== END ==
PROVIDERS: PCP Internal Medicine; Referring Provider Internal Medicine Cardiovascular Disease; Visit Provider Internal Medicine Cardiovascular Disease
DX: I10 Essential (primary) hypertension (principal); I47.29 Other ventricular tachycardia
CPT/HCPCS: 36415; 80053; 83735; 84443

== ENCOUNTER 2023-02-11 19:38 | Emergency (ER) | payer MEDICARE, OTHER, SELFPAY ==
[2023-02-11 19:41] VITALS: BP 154/72; PULSE 80; RESP 16; TEMP 36.6; O2SAT 96; BMI 35.3
--- NOTE | 2023-02-11 20:01 | ED.WOUNDLAC ---
HPI - Wound/Laceration General Chief Complaint: Wound/Laceration Stated Complaint: Right forefinger Time Seen by Provider: 02/11/23 19:55 Source: patient Mode of arrival: Ambulatory History of Present Illness HPI narrative: 87-year-old male. Is up-to-date on his tetanus. Sustained a cut to the back of his right index finger while doing dishes. No other injuries from the event. It did happened while he was washing a knife. He stated that he would difficult time getting the bleeding to stop which is what brought him into the emergency department. No numbness or tingling in his finger. Related Data Home Medications Medication Instructions Recorded Confirmed ASPIRIN (Aspir-Low) 81 mg PO QDAY ##0 02/24/11 03/18/18 atenolol 25 mg tablet 25 mg PO HS ##0 02/24/11 03/18/18 atorvastatin 40 mg tablet (Lipitor) 40 mg PO QDAY ##0 07/30/12 03/18/18 zolpidem 5 mg tablet 5 mg PO HSP ##0 07/30/12 03/18/18 Previous Rx's Medication Instructions Recorded prednisone 20 mg tablet 40 mg (2 x 20 mg) PO DAILY #8 tabs 03/04/22 Allergies Allergy/AdvReac Type Severity Reaction Status Date / Time Sulfa (Sulfonamide Allergy Mild HIVES Verified 05/04/22 14:34 Antibiotics) [SULFA (SULFONAMIDE ANTIBIOTICS)] Review of Systems Constitutional Constitutional: Reports system reviewed and no additional complaints, except as documented Musculoskeletal Musculoskeletal: Reports system reviewed and no additional complaints, except as documented Integumentary/Breasts Skin/Breast: Reports system reviewed and no additional complaints, except as documented Hematologic/Lymphatic On Anticoagulants: No Patient History Medical History Pacemaker Atrial fibrillation Social History Smoking Status: Former smoker Smoking Status: Former smoker tobacco type: cigarettes alcohol intake frequency: 0-2 drinks per day Substance Use Type: does not use Exam Initial Vital Signs Initial Vital Signs: Vital Signs Temperature 97.9 F 02/11/23 19:41 Pulse Rate 80 02/11/23 19:41 Respiratory Rate 16 02/11/23 19:41 Blood Pressure 154/72 H 02/11/23 19:41 Pulse Oximetry 96 02/11/23 19:41 Oxygen Delivery Method Room Air 02/11/23 19:41 Skin Other: 1 cm superficial laceration to the dorsum of the right index finger just distal to the MCP joint. Neuro Sensory Exam: no sensory deficits noted Extrem Other: He is able to flex and extend both active and passive at both the MCP and PIP joint. Procedures Laceration Repair Laceration 1: Site: other (Index finger) Side (If applicable): right Size (cm): 1 Description: linear Depth: simple, single layer Skin layer closed with: steri-strips Course Vital Signs Vital signs: Vital Signs - 8 hr 02/11/23 19:41 02/11/23 20:04 Temperature 97.9 F Pulse Rate 80 67 Respiratory Rate 16 20 Blood Pressure 154/72 H 109/58 L Pulse Oximetry 96 94 Oxygen Delivery Method Room Air Room Air MDM - Wound/Laceration MDM Narrative Medical decision making narrative: Patient did irrigate the wound extensively prior to arrival. There are no deep structure involvement. No extensor tendon involvement. The wound was closed with Dermabond and Steri-Strips. He was given care instructions and return precautions. He expressed understanding and agreement. Discharge Plan Departure Patient Disposition: Home Clinical Impression: Laceration Instructions: DI for Minor Laceration Activity Restrictions/Additional Instructions: Do not soak your hand in anything until the wound has healed however you can wash your hands and shower like normal. Return to the emergency department for new symptoms. Prescriptions: No Action prednisone 20 mg tablet 40 mg PO DAILY Qty: 8 0RF atenolol 25 MG tablet 25 mg PO HS Qty: 0 ASPIRIN (Aspir-Low) 81 mg PO QDAY Qty: 0 atorvastatin [Lipitor] 40 MG tablet 40 mg PO QDAY Qty: 0 zolpidem 5 MG tablet 5 mg PO HSP Qty: 0 Referrals: Evelyn Hallman MD [Primary Care Provider] - Stand Alone Forms: Patient Portal/API
[2023-02-11 20:04] VITALS: BP 109/58; PULSE 67; RESP 20; O2SAT 94
== END 2023-02-11 20:06 | disposition home or self-care (01) ==
PROVIDERS: Emergency Provider Emergency Medicine; PCP Internal Medicine
DX: S61.210A Laceration without foreign body of right index finger without damage to nail, initial encounter (principal); W26.0XXA Contact with knife, initial encounter; Y93.G1 Activity, food preparation and clean up
CPT/HCPCS: 99282; 99283

== ENCOUNTER → 2023-09-29 08:16 | Outpatient (CLI) | payer MEDICARE, OTHER, SELFPAY ==
[2023-09-29 10:03] LABS: Alanine Aminotransferase 22 IU/L (<50); Albumin 4.1 g/dL (3.5-5.0); Albumin Globulin Ratio 1.9 (1.0-2.8); Alkaline Phosphatase 62 U/L (38-126); Aspartate Aminotransferase 26 IU/L (17-59); BUN Creatinine Ratio 18.3 (6-22); Bilirubin Total 0.9 mg/dL (0.2-1.3); Blood Urea Nitrogen 17 mg/dL (9-20); Calcium 8.8 mg/dL (8.4-10.2); Carbon Dioxide 31 mmol/L (22-32); Chloride 107 mmol/L (98-107); Cholesterol 118 mg/dL (140-199); Estimated Glomerular Filt Rate > 60 mL/min (>60); Globulin 2.2 g/dL (1.7-4.1); Glucose 99 mg/dL (80-110); HDL Cholesterol 42 mg/dL (40-60); HEMOLYSIS < 15 (0-50); LDL Cholesterol Calculated 55 mg/dL (<100); Sodium 140 mmol/L (137-145); Total Protein 6.3 g/dL (6.3-8.2); Triglycerides 104 mg/dL (35-150)
== END ==
PROVIDERS: PCP Internal Medicine; Referring Provider Internal Medicine Cardiovascular Disease; Visit Provider Internal Medicine Cardiovascular Disease
DX: E78.5 Hyperlipidemia, unspecified (principal)
CPT/HCPCS: 36415; 80053; 80061